=== PATIENT | male | born 1960 | race Caucasian/White ===

== ENCOUNTER → 2023-01-15 | Outpatient (CLI) | payer OTHER, SELFPAY ==
[2023-01-15 14:16] LABS: PSA,Total- Diagnostic 6.13 ng/mL (0.0-4.0)
== END | disposition home or self-care (01) ==
LOC: LAB 13:14
PROVIDERS: PCP Nurse Practitioner Family; Referring Provider Urology; Visit Provider Urology
DX: R97.20 Elevated prostate specific antigen [PSA] (principal)
CPT/HCPCS: 36415; 84153

== ENCOUNTER → 2023-02-02 | Outpatient (CLI) | payer OTHER, SELFPAY ==
--- NOTE | 2023-02-02 08:22 | MRI_ITS ---
STUDY: MR PELVIS WITH T WITHOUT CONTRAST REASON FOR EXAM: Male, 62 years old. ELEVATED PSA 6.13 01/15/23 TECHNIQUE: Standardized fat and water weighted pulse sequences were obtained in all 3 orthogonal planes, pre-and post contrast administration. IV 25cc clariscan was administered for the contrast portion of the examination. COMPARISON: FINDINGS: Study is limited due to metal artifact/dephasing artifact produced by left hip arthroplasty. Prostate measures 3.68 cm AP by 4.54 cm craniocaudal by 4.13 cm transverse. The central zone is normal in appearance. The right peripheral zone superolaterally demonstrates a high signal nodule 0.95 x 0.72 cm. Seminal vesicles are mildly prominent. Normal urinary bladder. Normal visualized small intestine. Normal visualized colon. There is no pelvic fluid. There is no pelvic mass lesion or lymphadenopathy. Normal visualized pelvic arteries. Normal osseous structures. Normal abdominal wall. MRI/Pelvis W/WO Contrast IMPRESSION: Study limited due to artifact produced by left hip arthroplasty. Nodule right peripheral zone. If biopsy is contemplated then attention towards this nodule is advised if clinically warranted. Enlarged prostate. Mild enlargement of seminal vesicles. Given the limitations of this study prostate ultrasound advised for further evaluation if clinically warranted. Electronically Signed: Jermaine Cohen MD at 11:26 EDT ,
[2023-02-02 08:47] LABS: CREATININE FINGERSTICK 1.6 mg/dL (0.70-1.30)
== END | disposition home or self-care (01) ==
LOC: MRI 07:59
PROVIDERS: PCP Nurse Practitioner Family; Referring Provider Urology; Visit Provider Urology
DX: R97.20 Elevated prostate specific antigen [PSA] (principal)
CPT/HCPCS: 72197; A9575

== ENCOUNTER → 2023-03-20 | Outpatient (CLI) | payer OTHER, SELFPAY ==
--- NOTE | 2023-03-20 | IMM_PTH ---
PATIENT: EDISON MCLEAN LOC: [facility] U#:[id number] AGE/SX: 62/M ROOM: RE03/20/[address]: Dr. Estiven Schneider MD : 1960 BED: DIS: 03/20/2023 SPEC #: [id number] RECD: 03/22/23 12:10 STATUS: HILARIA RELinda #: [id number] MACIE: 03/20/23 00:[address]: Estiven Schneider DEPT: IMMUNOHISTOCHEMISTRY RECD BY: Kadie Bynum ENTERED: 03/22/23 12:12 SP TYPE: IMMUNO OTHR DR: Claudia Briseno, COOLING SYSTEM OPERATOR-C Tissues: B - PROSTATE RIGHT F - PROSTATE LEFT Procedures: 34BE12 (add) P40 (add) P40 (initial) PHYSICIAN & INSTITUTION [place] [id number] SPECIMEN INFORMATION: Tissue Source: B - Right prostate, mid, core biopsy, F - Left prostate, base, core biopsy Clinical Info: Elevated PSA Specimen Number: [id number] B & F CPT code: 63479, 42601 x3 METHODOLOGY: Deparaffinized sections of prefer/formalin-fixed tissue or PAP/DQ stained slides are incubated with monoclonal/polyclonal antibodies/oligonucleotide probes. Localization is made via biotin free immunoperoxidase method. Appropriate controls are performed and reacted as expected. Results on target cell population are indicated in the following table: RESULTS: ANTIBODY / CLONE RESULT Block B P40 (BC28) positive 34BE12 (34BE12) positive Block F P40 (BC28) positive 34BE12 (34BE12) positive These tests were developed and their performance characteristics determined by [facility]. They may not have been cleared or approved by the U.[place]. Food and Drug Administration. The FDA has determined that such clearance or approval is not necessary. The above immunohistochemical/dualISH markers are ordered and reviewed by the Pathologist. INTERPRETATION: B. Right prostate, mid, core biopsy: Prostatic tissue, negative for malignancy. F. Left prostate, base, core biopsy: Focal high-grade prostatic intraepithelial neoplasia (HGPIN). SJ:twan 03/23/2023
--- NOTE | 2023-03-20 08:00 | PROSBIL_PTH ---
PATIENT: EDISON MCLEAN LOC: [facility] U#:[id number] AGE/SX: 62/M ROOM: RE03/20/[address]: Dr. Estiven Schneider MD : 1960 BED: DIS: 03/20/2023 SPEC #: [id number] RECD: 03/21/23 07:46 STATUS: HILARIA CHRISSY #: [id number] MACIE: 03/20/23 08:[address]: Estiven Schneider DEPT: SURGICAL PATHOLOGY RECD BY: Kadie Bynum ENTERED: 03/21/23 07:48 SP TYPE: PROST BX JUAN DR: NOHELIA Crowe Tissues: A - PROSTATE RIGHT B - PROSTATE RIGHT C - PROSTATE RIGHT D - PROSTATE LEFT E - PROSTATE LEFT F - PROSTATE LEFT Procedures: PROSTATE BX HEADER OPERATION: Prostate biopsy PRE-OP DIAGNOSIS: Elevated PSA TISSUE SUBMITTED: A - Right apex, B - Right mid, C - Right base, D - Left apex, E - Left mid, F - Left base MICROSCOPIC DIAGNOSIS A. Right prostate, apex, core biopsy: Prostatic tissue, negative for malignancy. B. Right prostate, mid, core biopsy: Prostatic tissue, negative for malignancy. See comment. C. Right prostate, base, core biopsy: Prostatic tissue, negative for malignancy. D. Left prostate, apex, core biopsy: Prostatic tissue, negative for malignancy. Focal chronic inflammation. E. Left prostate, mid, core biopsy: Prostatic tissue, negative for malignancy. F. Left prostate, base, core biopsy: Focal high-grade prostatic intraepithelial neoplasia (HGPIN). See comment. SJ:rg 03/22/2023 COMMENT B & F. Immunohistochemistry ([id number]) supports the above diagnosis. MICROSCOPIC DESCRIPTION Slides are reviewed. GROSS DESCRIPTION A - Received is one container designated prostate, right apex. The specimen consists of two elongated fragments of light gilliland-white soft tissue each measuring 1.3 cm in length and 0.1 cm in diameter. The specimen is totally submitted in one cassette. B - Received is one container designated prostate, right mid. The specimen consists of two elongated fragments of light gilliland-white soft tissue each measuring 1.4 cm in length and 0.1 cm in diameter. The specimen is totally submitted in one cassette. C - Received is one container designated prostate, right base. The specimen consists of one elongated fragment of light gilliland-white soft tissue measuring 1.4 cm in length and 0.1 cm in diameter. Also present in the container are multiple fragments of soft tissue measuring in aggregate 0.5 x 0.2 x 0.1 cm. The specimen is totally submitted in one cassette. D - Received is one container designated prostate, left apex. The specimen consists of two elongated fragments of light gilliland-white soft tissue each measuring 1.0 cm in length and 0.1 cm in diameter. The specimen is totally submitted in one cassette. E - Received is one container designated prostate, left mid. The specimen consists of two elongated fragments of light gilliland-white soft tissue each measuring 1.0 cm in length and 0.1 cm in diameter. The specimen is totally submitted in one cassette. F - Received is one container designated prostate, left base. The specimen consists of two elongated fragments of light gilliland-white soft tissue each measuring 1.2 cm in length and 0.1 cm in diameter. The specimen is totally submitted in one cassette. / SJ:rg 03/21/2023 TC:5 CPT: 69538 x6
== END | disposition home or self-care (01) ==
LOC: LABSPEC 17:03
PROVIDERS: PCP Nurse Practitioner Family; Referring Provider Urology; Visit Provider Urology
DX: R97.20 Elevated prostate specific antigen [PSA] (principal)
CPT/HCPCS: 88305; 88341; 88342; G0416